=== PATIENT | male | born 1965 | race Caucasian/White ===

== ENCOUNTER 2024-11-27 20:14 | Emergency (ER) | payer OTHER, SELFPAY ==
--- OUTSIDE RECORDS SUMMARY | 2024-11-27 20:16 | XMS_ITS | Clinical Summary ---
Author Organization [facility] Address [address] [place] [id number] Care Team Providers Care Digital Research Analyst Name Role Phone Pcp, No Primary Care Provider Unavailabl e Allergies No known active allergies Medications lisinopril-hydro chlorothiazide (10-12.5 mg) tablet (PRINZIDE; ZESTORETIC)Indic ations:HTN (hypertension) TAKE 1 TABLET DAILY 90 Tablet 3 10/18/2022 Active Active Problems No known active problems Immunizations Immunization Administration Dates Next Due COVID-19 vaccine (LabRoots 30mcg/0.3mL) P F, MDV 08/09/2020,07/20/2020 Influenza, IIV4 03/27/2020 Tdap 03/27/2020 Zoster (Shingrix-RZV, recombinant) 03/27/2020 Family History Medical History Relation Name Comments Good Health Mother Relation Name Status Comments Mother Social History Tobacco Use Types Packs/Day Years Used Date Smoking Tobacco: Never Smokeless Tobacco: Never Tobacco Cessation:Counseling Given: No Alcohol Use Standard Drinks/Week Comments Yes 0 (1 standard drink = 0.6 oz pur e alcohol) PHQ-2 Answer Date Recorded PHQ-2 TOTAL SCORE 0 03/27/2020 Social Connections Answer Date Recorded Frequency of Communication with Friends and Fami ly Not on file 03/29/2021 Financial Resource Strain Answer Date R ecorded Difficulty of Paying Living Expenses Not on file 03/29/2021 Difficulty of Paying Living Expenses Not on file 03/29/2021 Sex and Gender Information Value Date Recorded Sex Assigned at Not on file Legal Sex Male 7:26 AM NEWSPAPER REPORTER Gender Identity Not on file Sexual Orientation Not on file Obstetrics History Last Filed Vital Signs Vital Sign Reading Time Taken Comments Blood Pressure 130/74 08/11/2020 2:50 PM CDT Pulse 58 08/11/2020 2:50 PM CDT Temperature - - Respiratory Rate - - Oxygen Saturation - - Inhaled Oxygen Concentration - - Weight 95.7 kg (211 lb) 08/11/2020 2:50 PM CDT Height 182.5 cm (5' 11.85) 08/11/2020 2:50 PM C DT Body Mass Index 28.74 08/11/2020 2:50 PM CDT Plan of Treatment Health Maintenance Due Date Last Done Comments Depression screening for age 12+ 1978 HIV for age 15-65 1981 Hepatitis C screening for ag e 18-79 01/06/1984 Hepatitis B series for 19+ ( 1 of 3 - 19+ 3-dose series) 1985 Colonoscopy through age 75 2011 Pneumococcal series for age 50+ (1 of 1 - PCV) 01/06/2016 Zoster (shingles) series for age 50+ (2 of 2) 05/22/2020 03/27/2020 BMI (ht and wt on same day) for age 18+ 08/11/2021 08/11/2020, 03/27/2020, 09/15/2018, Additional history exists COVID-19 vaccine series ( season) 2023 08/09/2020, 07/20/2020 Influenza Vaccine (#1) 2024 03/27/2020 Lipids for age 45-75 03/27/2025 03/27/2020, 12/16/19 19 Tetanus booster 03/27/2030 03/27/2020 Procedures Procedure Name Priority Date/Time Associated Diagnosis Comments LIPID PANEL Routine 03/27/2020 9:34 AM NEWSPAPER REPORTER Routine general medical examination at a health care facility from Last 3 Months or Most Recently Relevant to Health Maintenance Results * LIPID PANEL (03/27/2020 9:34 AM NEWSPAPER REPORTER) Pathologist [facility] CHOLESTEROL,TOTAL 179 100 - 199 mg/dL 03/27/2020 4:03 PM NEWSPAPER REPORTER [facility] TRIGLYCERIDES 110 <150 mg/dL 03/27/2020 4:03 PM NEWSPAPER REPORTER [facility] HDL CHOLESTEROL 51 >40 mg/dL 0 4:03 PM NEWSPAPER REPORTER [facility] NON-HDL CHOLESTEROL 128 <145 mg/dl 03/27/2020 4:03 PM NEWSPAPER REPORTER [facility] CHOL/HDL RATIO 3.51 <4.50 03/27/2020 4:03 PM NEWSPAPER REPORTER [facility] LDL CHOLESTEROL 106 <=130 mg/dL 03/27/2020 4:03 PM NEWSPAPER REPORTER [facility] PROVIDER ORDERED STATUS RANDOM 03/27/2020 4:03 PM NEWSPAPER REPORTER [facility] Blood BLOOD SPECIMEN / Unknown Venipuncture / Unknown 03/27/2020 9:34 AM NEWSPAPER REPORTER 03/27/2020 9:35 AM NEWSPAPER REPORTER us Jimi Shaver MB[facility] CHEMISTRY F inal Result [facility] [address] [place] [address], [place] from Last 3 Months or Most Recently Relevant to Health Maintenance Insurance [facility] x5 (Home) [phone] x5 (Work) ATTN [employer] PAYABLE [address] [address] [place] [address] Care Teams Digital Research Analyst Relationship Specialty Start Date End Date Pcp, No . PCP - General 05/22/16
[2024-11-27 20:19] VITALS: BP 200/96; PULSE 60; RESP 16; TEMP 36.7; O2SAT 98; BMI 27.7
--- NOTE | 2024-11-27 20:33 | ED.GENADULT ---
HPI - General Adult General Chief complaint: Laceration/Wound Stated complaint: Left Hand Laceration Time Seen by Provider: 11/27/24 20:32 History of Present Illness HPI narrative: around 1900 got L hand 2nd digit knuckle multiple lacerations from metal. denies any other injuries, small bleeding currently. no blood thinners. pt states he is able to move fingers normally. 59-year-old man presenting to the emergency department after injuring the 2nd MCP joint of his left hand. I believe was using a leaf blower/VAC when the blade/impeller struck the dorsum of his hand. Has been able to move his fingers normally but has pain and has sustained a laceration here. Current tetanus. Is having moderate pain. Bleeding controlled. Related Data Home Medications ?Medication ?Instructions ?Recorded ?Confirmed No Known Home Medications 11/27/24 11/27/24 Allergies Allergy/AdvReac Type Severity Reaction Status Date / Time No Known Drug Allergies Allergy Verified 11/27/24 20:21 Review of Systems Status of ROS: Reports: 6 or more systems reviewed and unremarkable except as noted in History and below [facility] Social History Smoking Status: Never smoker Second hand tobacco smoke exposure: No How often do you have a drink containing alcohol: never AUDIT-C Alcohol total score: 0 Non-prescribed substance use: denies use Exam Narrative: Exam Narrative: Pleasant. Engaging. A little uncomfortable. Calm. Primary injury is the the left hand there is an irregular full dermal laceration overlying the dorsal 2nd MCP joint. Gapping. Bleeds when manipulated. Total length 1.5 in. There is a triangular shaped flap centrally. Appears to have intact extension flexion at all joints. I do see the upper layers of joint capsule exposed. There is what looks to be grass debris that is admittedly little hard to fully visualize. Distal fingers well-perfused with sensation intact. Const: Vital Signs, click to edit/add: Vital Signs - 24 hr 11/27/24 20:19 Temperature 98.1 F Pulse Rate [Pulse Oximeter] 60 Respiratory Rate 16 Blood Pressure [Ri ght Upper Arm] 200/96 H Pulse Oximetry 98 Oxygen Delivery Me thod Room Air Documenting provider has reviewed patient's vital signs: yes Course Vital Signs Vital signs: Initial Vital Signs Temperature 98.1 F 11/27/24 20:19 Temperature Source Temporal Artery Scan 11/27/24 20:19 Pulse Rate 60 11/27/24 20:19 Respiratory Rate 16 11/27/24 20:19 Blood Pressure 200/96 H 11/27/24 20:19 Blood Pressure Mean 130 H 11/27/24 20:19 Blood Pressure Position Sitting 11/27/24 20:19 Pulse Oximetry 98 11/27/24 20:19 Oxygen Delivery Method Room Air 11/27/24 20:19 Vital Signs Temperature 98.1 F 11/27/24 20:19 Pulse Rate 60 11/27/24 20:19 Respiratory Rate 16 11/27/24 20:19 Blood Pressure 200/96 H 11/27/24 20:19 Pulse Oximetry 98 11/27/24 20:19 Oxygen Delivery Method Room Air 11/27/24 20:19 Temperature 98.1 F 11/27/24 23:02 Pulse Rate 68 11/27/24 23:02 Respiratory Rate 16 11/27/24 23:02 Blood Pressure 178/86 H 11/27/24 23:02 Pulse Oximetry 98 11/27/24 23:01 Oxygen Delivery Method Room Air 11/27/24 23:01 Medications Administered Medications: Discontinued Medications Generic Name Dose Route Start Last Admin Trade Name Freq PRN Reason Stop Dose Admin Lidocaine/Epinephrine 5 ml 11/27/24 20:57 11/27/24 20:50 Lidocaine 1%-Epi 1:100,000 INFILTRATI 11/27/24 20:58 5 ml ONCE ONE Administration Medical Decision Making MDM Narrative Medical decision making narrative: Does not appear to have sustained a ligamentous injury. This is going to be a little tricky to repair. We discussed potential need x-ray for bony abnormality. Further palpation over the bony structures is without discrete pain. I did offer imaging but he feels unlikely necessary and with further exploration I am inclined to agree and would like to cover with prophylactic antibiotics regardless. I did return to numb up this wound with lidocaine with epinephrine. Ultimately injecting total of 4 mL about the wound in a couple of different applications. Was set to soak in warm Hibiclens and water solution. Scrubbed further with this. I continued to debride this wound and then pressure irrigated with sterile water. Could not find any further debris on exploration. Sutured with combination of 5 and 6 0 Ethilon. Very good wound approximation achieved. Trace oozing of blood appeared to stop. Antibiotic ointment and Band-Aid applied. He tolerated this quite well. 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 Is in more of a traore position now currently. Current tetanus See patient discharge plan for further discussion Was a pleasure to meet you. As prophylaxis, I am prescribing cephalexin for 5 days from [facility]. Elevate for comfort. Could throw an ice pack on there too. Ibuprofen, acetaminophen. sutures out in 10 - 11 days. antibiotic ointment for 5 days and then to a dry dressing. ok to get wet but try not to soak while sutures are in. Watch for spreading redness after 2 days accompanied by heat, swelling, marked increase in pain, purulent drainage. If having a good deal of pain though otherwise still in about a week, would consider follow-up for imaging. Discharge Plan Discharge Clinical Impression: Complicated laceration of hand, Contusion Patient Disposition: Home w/ Parent or Adult Condition: Improved Additional Instructions: Was a pleasure to meet you. As prophylaxis, I am prescribing cephalexin for 5 days from [facility]. Elevate for comfort. Could throw an ice pack on there too. Ibuprofen, acetaminophen. sutures out in 10 - 11 days. antibiotic ointment for 5 days and then to a dry dressing. ok to get wet but try not to soak while sutures are in. Watch for spreading redness after 2 days accompanied by heat, swelling, marked increase in pain, purulent drainage. If having a good deal of pain though otherwise still in about a week, would consider follow-up for imaging. Prescriptions: No Action No Known Home Medications Follow Up/Referrals: Provider,Not a Local [Primary Care Provider, Family Practice] Stand Alone Forms: [employer] Info Instructions
[2024-11-27] MEDS: LIDOCAINE 1%-EPI 1:100,000 5 ML INFILTRATI (20:50)
[2024-11-27 23:01] VITALS: BP 178/86; PULSE 68; RESP 16; TEMP 36.7; O2SAT 98
[2024-11-27 23:02] VITALS: BP 178/86; PULSE 68; RESP 16; TEMP 36.7
== END 2024-11-27 23:02 | disposition home or self-care (01) ==
PROVIDERS: Emergency Provider Family Medicine
DX: S61.412A Laceration without foreign body of left hand, initial encounter (principal); W26.9XXA Contact with unspecified sharp object(s), initial encounter
CPT/HCPCS: 12001; 99283; 99284